=== PATIENT | female | born 1965 | race Caucasian/White ===

== ENCOUNTER 2025-06-28 18:51 | Emergency (ER) | payer BC ==
[~2025-06-28] VITALS: Ht 154.9 cm; Wt 57.7 kg
--- NOTE | 2025-06-28 19:28 | Physician Documentation ---
History of Present Illness Stated Complaint: FINGER LAC Primary Medical Doctor: rom gomez [facility] MSE: 60-year-old female presents to the emergency department for evaluation repair of a laceration to the finger. She reported she was cutting a lemon when she accidentally cut her finger. Bleeding is controlled with a bandage currently. Finger starts to bleed again with the bandage is removed. Patient is declining x-ray at this time. Medication Reconciliation Allergies: Coded Allergies: Codeine (Verified Allergy, 04/03/10) Sulfa (Sulfonamide Antibiotics) (Verified Allergy, 04/03/10) Review of Systems ROS As stated above in the HPI, otherwise all systems are reviewed and negative. Physical Exam Physical Exam VITALS: Reviewed and as above. GENERAL: Alert, no apparent distress. HEENT: Normocephalic, atraumatic, PERRL, EOMI, dry mucosa, no erythema RESPIRATORY: Lungs clear, normal breath sounds, no respiratory distress. CHEST: No accessory muscle use, no retractions CV: Regular rate, rhythm, no edema, no murmur, No: JVD GI: Soft, non-tender, bowels sounds present, no rebound, guarding, or rigidity BACK: No CVA tenderness, or swelling MUSCULOSKELETAL No deformities, no edema SKIN: Warm and dry, no rash, laceration to 3rd digit of left hand. NEURO: Oriented x4, No motor or sensory deficit PSYCH: Normal mood and affect, no agitation Procedures Procedures Wound thoroughly inspected. Wound irrigated irrigated thoroughly. Ring block performed with a approximately 4 mL of 1% lidocaine without epi. Eight sutures placed with four 0 Vicryl suture. No complications. Patient tolerated procedure well. Medical Decision Making Findings Wound inspected under direct bright light with good visualization. Area with linear laceration across soft tissue through adipose without exposure of muscle belly or tendon. No overt foreign body. Area hemostatic. Neurovascular exam congruent with above. Area extensively irrigated with sterile normal saline under pressure. Laceration repaired in simple fashion as below (please see procedure note for further details). Patient tolerated procedure well and neurovascular exam intact and unchanged post repair with intact distal pulses and cap refill_. Cautious return precautions discussed w/ full understanding. Wound care discussed. Prompt follow up with primary care physician discussed and return for suture removal in 10 days. Departure Disposition: HOME / SELF CARE / HOMELESS Impression: Primary Impression: Laceration Condition: Stable Discharge Instructions: Laceration Care, Adult, [id number], Laceration Care (Skin Glue) Additional Instructions: Wound inspected under direct bright light with good visualization. Area with linear laceration across soft tissue through adipose without exposure of muscle belly or tendon. No overt foreign body. Area hemostatic. Neurovascular exam congruent with above. Area extensively irrigated with sterile normal saline under pressure. Laceration repaired in simple fashion as below (please see procedure note for further details). Patient tolerated procedure well and neurovascular exam intact and unchanged post repair with intact distal pulses and cap refill_. Cautious return precautions discussed w/ full understanding. Wound care discussed. Prompt follow up with primary care physician discussed and return for suture removal in 10 days. Please follow up to have sutures removed in 10 days. Please follow up sooner if signs of infection present. Please follow up with the primary care provider. Please return to the emergency department if any worsening or recurrent symptoms or any additional concerning symptoms that we discussed here today i.e. increased redness increased pain fever chills or any other concerning symptoms. Referrals: NO PRIMARY CARE PROVIDER (PCP) Education Educated: Patient Educated regarding: diagnosis, treatment, need for follow up Signature Scribe Signature: A Attestation: Scribed for Everardo Hollis by HENRIQUE Bustamante . 06/28/25 21:47 EVERADRO HOLLIS Jun 28, 2025 19:28
[2025-06-28 19:35] VITALS: BP 143/73; PULSE 78; RESP 22; TEMP 97; O2SAT 98
[2025-06-28] MEDS ORDERED: LIDOcaine 1% 30ml preserv. free vial SQ STA (20:12)
[2025-06-28] MEDS: LIDOcaine 1% 30ml preserv. free vial IJ STA (20:50)
== END 2025-06-28 22:08 | disposition home or self-care (01) ==
LOC: ER 18:51
DX: S61.213A Laceration without foreign body of left middle finger without damage to nail, initial encounter (principal); Z88.2 Allergy status to sulfonamides; Z88.5 Allergy status to narcotic agent; W26.0XXA Contact with knife, initial encounter; Y93.89 Activity, other specified; Y92.89 Other specified places as the place of occurrence of the external cause; Y99.8 Other external cause status
CPT/HCPCS: 12001; 99282; A6258; A6449